=== PATIENT | male | born 1980 | race Caucasian/White ===

== ENCOUNTER 2016-11-12 16:59 | Emergency (ER) | payer MEDICAID ==
[~2016-11-12] VITALS: Ht 188 cm; Wt 109.0 kg
[~2016-11-12 16:59] MED LIST: ALBU8.5H3 INH; BECL8.7A INH; PRED20TA PO
[2016-11-12 17:20] VITALS: Ht 188 cm; Wt 109.0 kg
[2016-11-12] MEDS ORDERED: ALBUTEROL 0.083% (NEB) 2.5 MG/3 ML AMP HHN STA (20:05)
[2016-11-12] MEDS ORDERED: DEXAMETHASONE 4 MG/ML 1 ML INJ IM ONE (20:30)
[2016-11-12] MEDS ORDERED: IPRATROPIUM (NEB) 0.5 MG/2.5 ML AMP HHN ONE (20:30)
[2016-11-12] MEDS ORDERED: ALBU8.5H3 INH (21:17)
[2016-11-12] MEDS ORDERED: PRED20TA PO (21:17)
[2016-11-12 21:29] VITALS: BP 135/83; PULSE 86; RESP 20
--- NOTE | 2016-11-12 23:22 | ERD ---
ER Documentation Chief Complaint Date/Time DATE: 11/12/16 TIME: 23:16 Chief Complaint states "asthma" / sob x today no inhaler HPI Patient is a 36-year-old male complaining of shortness of breath accompanied by productive cough and runny nose 1 day. Patient states that he ran out of his albuterol medication 3 days ago. Patient has a history of asthma. Patient denies any headache, dizziness, chest pain, nausea, visual changes or sore throat. ROS All systems reviewed and are negative except as per history of present illness. Medications Home Meds Active Scripts Prednisone* (Prednisone*) 20 Mg Tab, 60 MG PO DAILY for 2 Days, TAB Prov:LATASHA CHIRINOS 11/12/16 Prednisone* (Prednisone*) 20 Mg Tab, 40 MG PO DAILY for 3 Days, TAB Prov:LATASHA CHIRINOS 11/12/16 Albuterol Sulfate* (Proair HFA*) 8.5 Gm Hfa.aer.ad, 2 PUFF INH Q4H Y for WHEEZING AND SOB, #1 INHALER Prov:LATASHA CHIRINOS 11/12/16 Prednisone* (Prednisone*) 20 Mg Tab, 40 MG PO DAILY for 4 Days, TAB Prov:JOHN DAVILA MD 10/18/15 Albuterol Sulfate* (Proair HFA*) 8.5 Gm Hfa.aer.ad, 2 PUFF INH Q4H Y for WHEEZING AND SOB, #1 INHALER Prov:JOHN DAVILA MD 10/18/15 Beclomethasone Dip* (Qvar 40*) 7.3 Gm Inha, 1 PUFF INH BID, #1 INHALER Prov:JOHN DAVILA MD 10/18/15 Albuterol Sulfate* (Proair HFA*) 8.5 Gm Hfa.aer.ad, 2 PUFF INH Q4H Y for WHEEZING AND SOB, #1 INHALER Prov:ZIA SHEA DO 09/22/15 Allergies Allergies: Coded Allergies: No Known Allergy (Unverified , 11/12/16) PMhx/Soc History of Surgery: No Anesthesia Reaction: No Hx Neurological Disorder: No Hx Respiratory Disorders: Yes (asthma) Hx Cardiac Disorders: No Hx Psychiatric Problems: No Hx Miscellaneous Medical Probl: No Hx Alcohol Use: No Hx Substance Use: No Hx Tobacco Use: No Smoking Status: Unknown if ever smoked Physical Exam Vitals Vital Signs Date Time Temp Pulse Resp B/P Pulse Ox O2 Delivery O2 Flow Rate FiO2 11/12/16 21:29 86 20 135/83 94 Room Air 11/12/16 20:32 103 24 92 21 11/12/16 17:20 98.5 91 20 134/73 96 Physical Exam Physical Exam CONST: Well-developed, well-nourished, in no acute distress. Nontoxic in appearance. HEENT: Atraumatic. Normal conjunctiva. EOM intact. TM intact. External ear is normal. Clear oropharnyx without erythema. No uvular deviation. Moist mucous membranes. Supple neck. No meningismus. No submandibular induration. RESP: Inspiratory and expiratory wheezing bilaterally. No accessory muscle use. CARDIO: Regular rate and rhythm, no murmurs. ABD: Soft, non tender, non distended. Normal bowel sounds. No McBurney's point tenderness. No guarding or rigidity. No peritoneal signs. SKIN: No petechiae or rashes. BACK: No midline or flank tenderness. EXT: No cyanosis or edema. Distal pulses equal and bilateral. NEURO: Awake and alert, appropriate for age. Results 24 hrs Current Medications Medications (Trade) Dose Ordered Sig/Oksana Route PRN Reason Start Time Stop Time Status Last Admin Dose Admin Dexamethasone (Decadron) 10 mg ONCE ONCE IM 11/12/16 20:30 11/12/16 20:31 DC 11/12/16 20:27 Albuterol (Proventil 0.083% (Neb)) 5 mg ONCE STAT HHN 11/12/16 20:05 11/12/16 20:12 DC 11/12/16 20:32 Ipratropium [place] (Atrovent 0.02% (Neb)) 0.5 mg ONCE ONCE HHN 11/12/16 20:30 11/12/16 20:31 DC 11/12/16 20:32 Procedures/MDM EMERGENCY DEPARTMENT COURSE/MEDICAL DECISION MAKING This is a 36-year-old male who comes to the emergency room with complaints of shortness of breath, cough and runny nose for 1 day. Patient has a history of asthma and ran out of his albuterol medication 3 days ago. The patient was given albuterol, Atrovent and dexamethasone IM in the department. On re-evaluation, the patient's symptoms improved. Patient is afebrile and appears nontoxic. Radiologic studies are unwarranted. My primary diagnosis is asthma with acute exacerbation. Differential diagnoses considered but not limited to pneumonia, bronchitis, influenza, upper respiratory infection, pharyngitis, peritonsillar abscess, otitis media, otitis externa.. Pt is hemodynamically stable upon reassessment. The patient was discharged for outpatient management with a prescription for pro -air and tapered steroid. The patient was advised to followup with their PMD in 1-2 days and to return to the Emergency Department if there are any new or worsening symptoms. The patient understood and agreed with the diagnosis, treatment and plan. Patient is stable for discharge at this time. Departure Diagnosis: Primary Impression: Asthma with acute exacerbation Asthma severity: unspecified severity Qualified Code: J45.901 - Asthma with acute exacerbation, unspecified asthma severity Condition: Stable Patient Instructions: Asthma Medications, Asthma, Acute (Adult) [facility]errals: [facility] Usted se hyde hecho un examen mdico de control que le indica que no est en alannah condicin que requiera tratamiento urgente en el Departamento de Emergencia. Un estudio ms profundo y el tratamiento de walden condicin pueden esperar sin ningn riesgo hasta que usted sea atendida/o en el consultorio de walden mdico o alannah cl vanessa. Es responsabilidad suya arreglar alannah rafael para el seguimiento del kelsie. MANEJO DE CONDICIONES NO URGENTES EN EL FUTURO 1) Si usted tiene un mdico de atencin primaria: Usted debera llamar a walden mdico de atencin primaria antes de venir al departamento de emergencia. Despus de las horas de consultorio, walden doctor o walden asociado/a est disponible por telfono. El mdico o enfermero de pankaj en el servicio telefnico puede asesorarle por rafia medio para atender el problema, o kelsie contrario se puede programar alannah rafael. 2) Si usted no tiene un mdico de atencin primaria: Llame al mdico o clnica de referencia que aparece abajo manav las horas de consultorio para hacer alannah rafael para que le vean. CLINICAS: [facility] [phone] [facility] [phone] [facility] [phone] [place] [address] [phone] [place] [address] [phone] [facility] [phone] [address] [facility]. [facility] () hansa se hyde hecho un examen mdico de control que le indica que no est en alannah condicin que requiera tratamiento urgente en el Departamento de Emergencia. Un estudio ms profundo y el tratamiento de walden condicin pueden esperar sin ningn riesgo hasta que usted sea atendida/o en el consultorio de walden mdico o alannah cl vanessa. Es responsabilidad suya arreglar alannah rafael para el seguimiento del kelsie. MANEJO DE CONDICIONES NO URGENTES EN EL FUTURO 1) Si usted tiene un mdico de atencin primaria: Usted debera llamar a walden mdico de atencin primaria antes de venir al departamento de emergencia. Despus de las horas de consultorio, walden doctor o walden asociado/a est disponible por telfono. El mdico o enfermero de pankaj en el servicio telefnico puede asesorarle por rafia medio para atender el problema, o kelsie contrario se puede programar alannah rafael. 2) Si usted no tiene un mdico de atencin primaria: Llame al mdico o condado institucions de referencia que aparece abajo manav las horas de consultorio para hacer alannah rafael para que le vean. SI USTED NO PUEDE PAGAR PARA LUCY UN MEDICO puede ir a: [facility] [address] [place] [address] [facility] [address] [place] [address] [facility] [address] [place] [address] [facility] [address] [place], [place] [id number] Additional Instructions: Seguimiento con walden mdico de atencin primaria en 1-2 pitt. Volver al Departamento de la emergencia inmediatamente si tiene alguno nuevo o empeoramiento de los sntomas, incontrolada fiebre u otros sntomas inexplicables. [place] todos los medicamentos dhara lo indique. LATASHA CHIRINOS Nov 12, 2016 23:22
== END 2016-11-12 21:30 | disposition home or self-care (01) ==
LOC: FTE 16:59
DX: J45.901 Unspecified asthma with (acute) exacerbation (principal)
CPT/HCPCS: 94664; 96372; J1100; Z7502; Z7610

== ENCOUNTER 2018-07-16 20:59 | Inpatient (IN) | END 2018-07-19 11:30 | disposition home or self-care (01) | DRG 812 ==